=== PATIENT | male | born 1950 | race African-American/Black ===

== ENCOUNTER → 2018-08-29 | Day surgery (SDC) | payer MEDICARE ==
[2018-08-28 16:57] VITALS: BMI 31.3
[~2018-08-29] MED LIST: Bupivacaine/Epinephrine 0.25% 30 ML VIAL ONE; CEFAZOLIN 2 GM/50 ML BAG ONE; Fentanyl 100 MCG/2 ML VIAL ONE; Glycopyrrolate 0.2 MG/ML 5 ML SYRINGE ONE; HYDROcodone/Acetaminophen 10/325 mg Tablet ONE; HYDROmorphone 2 MG/ML VIAL ONE; Lidocaine 1% PF 5 ML VIAL ONE; Midazolam HCl 2 mg/2 ml Vial ONE; Ondansetron PF 4 MG/2 ML Vial ONE; PROPOFOL 200 MG/20 ML VIAL ONE; Sodium Chloride 0.9% 0 ML ONE; ePHEDrine/0.9% NaCl/PF SYRINGE 50 mg/10 ml ONE
[2018-08-29 10:25] LABS: Mean Corpuscular HGB CONC 31.4 g/dL (32.0-36.0); Mean Corpuscular Hemoglobin 29.6 pg (27.0-31.0); Mean Corpuscular Volume 94.4 fL (78.0-98.0); Mean Platelet Volume 6.8 fL (7.4-10.4); Platelet Count 220 thou/uL (130-400); RBC Distribution Width 12.8 % (11.5-14.5); Red Blood Cell (RBC) Count 4.74 mill/uL (4.70-6.10); White Blood Cell (WBC) Count 7.3 thou/uL (4.8-10.8)
[2018-08-29 10:44] LABS: ALT (SGPT) 27 U/L (8-55); AST (SGOT) 23 U/L (5-34); Albumin 4.3 g/dL (3.4-4.8); Alkaline Phosphatase 76 U/L (40-150); Anion Gap 13 mmol/L (10-20); BUN (Urea Nitrogen) 15 mg/dL (8.4-25.7); Bilirubin, Total 0.4 mg/dL (0.2-1.2); Calc. Creatinine Clearance 115 mL/min (70-130); Calcium 9.8 mg/dL (7.8-10.44); Carbon Dioxide 27 mmol/L (23-31); Chloride 107 mmol/L (98-107); Estimated GFR-MDRD Greater than 90; Globulin 3.4 g/dL (2.4-3.5); Glucose 116 mg/dL (80-115); Potassium 4.9 mmol/L (3.5-5.1); Protein, Total 7.7 g/dL (5.8-8.1); Sodium 142 mmol/L (136-145)
[2018-08-29 10:45] LABS: Band 2 % (5-11); Eosinophils 4 % (0-10); Lymphocytes 51 % (21-51); MDiff Complete? YES; Monocytes 7 % (0-10); Neutrophil 30 % (42-75); RBC Morphology Normal; Reactive Lymphocytes 6 % (0-10)
--- NOTE | 2018-08-29 12:19 | OP ---
PREOPERATIVE DIAGNOSIS: Battery depletion of programmable intrathecal pain pump. SURGEON: Gregory Salazar M.D. PROCEDURE PERFORMED: Removal and replacement of implantable programmable intrathecal pain pump. INDICATIONS: A 67-year-old male who has post-laminectomy syndrome, has an intrathecal pain pump. Th e battery is depleted and needs replacement. FINDINGS: The capsule was tight, so I had to do a capsulotomy. DESCRIPTION OF PROCEDURE: After informed consent was obtained, the patient was taken to the operatin g room and given general mask anesthesia. He was placed in the supine position. His abdomen was pre pped and draped in usual fashion. Local anesthesia infiltrated subcutaneously and deep with 0.5% Mar tru. A transverse incision was performed through the old scar. Subcutaneous divided sharply and t he capsule incised. The capsule was opened and the sutures were then cut to release the port. The p ain pump was then accessed through the intrathecal port and aspirated and 0.4 mL of CSF removed. The n the old port was disconnected from the tubing. The new pump was primed in which the saline was rem zurdo. The old morphine was removed and the narcotic was then placed in the new pump. Then the new p ump was connected to the existing tubing secured with 0 silk tie. Upon inspection, I tried to see if that would fit in the old pocket, but it was very tight, so I had to do a capsulotomy. I avoided th e lateral aspect to avoid injury to the tubing and opened the capsule 270 degrees superior, medial an d inferiorly. This allowed the new pump to be placed without problem. It was secured with 2-0 Prole ne sutures superiorly and then the capsule was closed with interrupted 2-0 Vicryl suture. The skin c losed with interrupted 4-0 Rapide. Steri-Strips applied. Sterile bandage applied. The patient diogo rated the procedure well and was transferred to recovery in good condition. Sponge and needle count verified correct x2.
--- NOTE | 2018-08-29 15:40 | EKG ---
Test Reason : PREOP Blood Pressure : / mmHG Vent. Rate : 052 BPM Atrial Rate : 052 BPM P-R Int : 166 ms QRS Dur : 092 ms QT Int : 426 ms P-R-T Axes : 006 012 087 degrees QTc Int : 396 ms Sinus bradycardia Nonspecific T wave abnormality Abnormal ECG No previous ECGs available Confirmed by HAILE MACARIO ([id number]) on 08/29/2018 3:39:59 PM Referred By: OG Confirmed By:HAILE MACRAIO
== END ==
LOC: SDC 09:38
PROVIDERS: ATTEND Surgery
PROC: 0JPT0VZ Removal of Infusion Pump from Trunk Subcutaneous Tissue and Fascia, Open Approach (ICD-10-PCS; principal; 2018-08-29)
PROC: 0JH80VZ Insertion of Infusion Pump into Abdomen Subcutaneous Tissue and Fascia, Open Approach (ICD-10-PCS; 2018-08-29)
DX: Z45.1 Encounter for adjustment and management of infusion pump (principal); M96.1 Postlaminectomy syndrome, not elsewhere classified; G89.29 Other chronic pain; M54.9 Dorsalgia, unspecified; M19.90 Unspecified osteoarthritis, unspecified site; F32.9 Major depressive disorder, single episode, unspecified; E11.9 Type 2 diabetes mellitus without complications; F17.210 Nicotine dependence, cigarettes, uncomplicated; Z79.4 Long term (current) use of insulin; Z79.82 Long term (current) use of aspirin; Z79.899 Other long term (current) drug therapy; Z98.1 Arthrodesis status
CPT/HCPCS: 62362; 80053; 85025; 93005; C1772; 36415; 36416; 93010; J1170; J2001; J2250; J2405; J2704; J3010

== ENCOUNTER → 2021-02-22 | Day surgery (SDC) | payer MEDICARE ==
[2021-02-17 11:31] VITALS: BMI 28.1
[~2021-02-22] MED LIST changes: -Bupivacaine/Epinephrine 0.25% 30 ML VIAL ONE; -CEFAZOLIN 2 GM/50 ML BAG ONE; -Fentanyl 100 MCG/2 ML VIAL ONE; -Glycopyrrolate 0.2 MG/ML 5 ML SYRINGE ONE; -HYDROcodone/Acetaminophen 10/325 mg Tablet ONE; -HYDROmorphone 2 MG/ML VIAL ONE; +Iopamidol-M 200 41% 20 ML VIAL ONE; -Lidocaine 1% PF 5 ML VIAL ONE; -Midazolam HCl 2 mg/2 ml Vial ONE; -Ondansetron PF 4 MG/2 ML Vial ONE; -PROPOFOL 200 MG/20 ML VIAL ONE; -Sodium Chloride 0.9% 0 ML ONE; -ePHEDrine/0.9% NaCl/PF SYRINGE 50 mg/10 ml ONE
[2021-02-22 10:26] VITALS: BP 142/71; TEMP 98.2
== END ==
LOC: MRI 07:25
PROVIDERS: ATTEND Nurse Practitioner Family
PROC: [UNRECOGNIZED PROCEDURE] (principal; 2021-02-22)
DX: M51.16 Intervertebral disc disorders with radiculopathy, lumbar region (principal); M47.26 Other spondylosis with radiculopathy, lumbar region; M48.062 Spinal stenosis, lumbar region with neurogenic claudication; M46.1 Sacroiliitis, not elsewhere classified; M96.1 Postlaminectomy syndrome, not elsewhere classified; I70.0 Atherosclerosis of aorta; G47.33 Obstructive sleep apnea (adult) (pediatric); J44.9 Chronic obstructive pulmonary disease, unspecified; M19.90 Unspecified osteoarthritis, unspecified site; E11.9 Type 2 diabetes mellitus without complications; I10 Essential (primary) hypertension; F17.210 Nicotine dependence, cigarettes, uncomplicated; E78.5 Hyperlipidemia, unspecified; Z53.8 Procedure and treatment not carried out for other reasons; Z79.4 Long term (current) use of insulin; Z79.899 Other long term (current) drug therapy; Z98.1 Arthrodesis status
CPT/HCPCS: 62304; 72131; 72141; Q9966